=== PATIENT | male | born 1955 | race African-American/Black ===

== ENCOUNTER 2017-02-07 05:56 | Day surgery (SDC) | payer OTHER ==
[~2017-02-07] VITALS: Ht 167.6 cm; Wt 99.8 kg
[2017-02-07] MEDS ORDERED: METF500T64 PO (07:19)
[2017-02-07] MEDS ORDERED: HTN (07:19)
[2017-02-07] MEDS ORDERED: fentaNYL 0.05 MG/ML VIAL ONE (07:30)
[2017-02-07] MEDS ORDERED: MIDAZOLAM 2 MG/2 ML VIAL ONE (07:30)
[2017-02-07] MEDS ORDERED: LIDOCAINE 2% 100 MG/5 ML UJET TP ONE (07:30)
== END 2017-02-07 08:40 | disposition home or self-care (01) ==
LOC: MDS 05:56 → MMU 06:03 → MDS 08:40
PROVIDERS: ATTEND Internal Medicine Gastroenterology
DX: Z12.11 Encounter for screening for malignant neoplasm of colon (principal); D12.5 Benign neoplasm of sigmoid colon; I10 Essential (primary) hypertension; E78.5 Hyperlipidemia, unspecified; J45.909 Unspecified asthma, uncomplicated; E66.09 Other obesity due to excess calories; Z68.30 Body mass index [BMI] 30.0-30.9, adult; E11.9 Type 2 diabetes mellitus without complications; Z87.891 Personal history of nicotine dependence; Z79.84 Long term (current) use of oral hypoglycemic drugs; Z79.899 Other long term (current) drug therapy
CPT/HCPCS: 45385; 82948; J2250; J3010